=== PATIENT | female | born 1955 | race African-American/Black ===

== ENCOUNTER 2019-09-24 12:56 | Emergency (ER) | payer SELFPAY ==
[~2019-09-24] VITALS: Ht 165.1 cm; Wt 62.8 kg
[~2019-09-24 12:56] MED LIST: FELO10TA45
[2019-09-24 13:23] VITALS: BP 127/81
[2019-09-24] MEDS ORDERED: LIDOCAINE HCL 1% 20ML VIAL (Pyxis) INJ INFIL ONE (15:30)
[2019-09-24] MEDS ORDERED: BACITRACIN ZINC OINT UDPKT TOP ONE (15:30)
[2019-09-24] MEDS ORDERED: TETANUS, DIPHTHERIA, PERTUSSIS VAC/PF 0.5ML (>7YR OLD) IM ONE (15:30)
== END 2019-09-24 16:08 | disposition home or self-care (01) ==
LOC: ER 12:56
DX: S81.831A Puncture wound without foreign body, right lower leg, initial encounter (principal); I10 Essential (primary) hypertension; Z85.3 Personal history of malignant neoplasm of breast; W54.0XXA Bitten by dog, initial encounter; Y93.89 Activity, other specified; Y92.89 Other specified places as the place of occurrence of the external cause; Y99.8 Other external cause status
CPT/HCPCS: 90471; 90715; 99283; J3490

== ENCOUNTER 2022-04-23 14:08 | Emergency (ER) | payer MEDICARE, BC ==
[~2022-04-23] VITALS: Ht 162.6 cm; Wt 61.0 kg
[2022-04-23 14:13] VITALS: BP 130/73
[2022-04-23] MEDS ORDERED: DIAZEPAM 2 MG TABLET PO ONE (15:30)
[2022-04-23] MEDS ORDERED: IBUPROFEN 600MG TABLET PO ONE (15:30)
[2022-04-23] MEDS ORDERED: METH-773 MT (17:44)
[2022-04-23] MEDS ORDERED: IBUP-2029 MT (17:44)
== END 2022-04-23 18:01 | disposition home or self-care (01) ==
LOC: ER 14:08
DX: S49.82XA Other specified injuries of left shoulder and upper arm, initial encounter (principal); M54.12 Radiculopathy, cervical region; M54.16 Radiculopathy, lumbar region; I10 Essential (primary) hypertension; W18.49XA Other slipping, tripping and stumbling without falling, initial encounter; Y93.01 Activity, walking, marching and hiking; Y92.512 Supermarket, store or market as the place of occurrence of the external cause; Z85.9 Personal history of malignant neoplasm, unspecified
CPT/HCPCS: 99284